=== PATIENT | female | born 1975 | race Caucasian/White ===

== ENCOUNTER → 2018-03-11 08:40 | Outpatient (CLI) | payer OTHER, SELFPAY ==
[2018-03-11 10:06] LABS: Follicle Stimulating Hormone 4.08 mIU/mL; Luteinizing Hormone 4.93 mIU/mL; Prolactin 12.5 ng/mL (3.0-18.6)
[2018-03-11 10:28] LABS: Thyroid Stimulating Hormone 0.89 uIU/mL (0.47-4.68)
[2018-03-15 21:58] LABS: Testosterone Free 3.1 pg/mL (0.1-6.4); Testosterone Total 35 ng/dL (2-45)
[2018-03-17 19:16] LABS: Estradiol 130 pg/mL
== END ==
DX: R63.5 Abnormal weight gain (principal)
CPT/HCPCS: 36415; 82672; 83001; 83002; 84146; 84402; 84403; 84443

== ENCOUNTER → 2018-12-29 16:20 | Outpatient (CLI) | payer OTHER, SELFPAY ==
--- NOTE | 2018-12-29 16:22 | DI.RAD.S_ITS ---
PROCEDURE: XR KNEE RT 3V INDICATIONS: Knee pain, injury TECHNIQUE: 3 views of the knee were acquired. COMPARISON: None. FINDINGS: Bones: No displaced fracture identified. There is mild narrowing of the medial compartment of the right knee. Soft tissues: Large right knee joint effusion. IMPRESSION: 1. Large right knee joint effusion, raising concern for potential ligamentous/soft tissue injury. No displaced right knee fracture identified. Consider followup radiographs in 7-10 days versus MRI if there is continued clinical concern. 2. Mild narrowing of the medial compartment of the right knee, which can be seen secondary to degenerative change or positioning artifact. Dictated by: Yosef Holguin M.D. on 12/29/2018 at 17:42 Approved by: Yosef Holguin M.D. on 12/29/2018 at 17:47
== END ==
PROVIDERS: PCP Student in an Organized Health Care Education/Training Program; Visit Provider Student in an Organized Health Care Education/Training Program
DX: M25.561 Pain in right knee (principal); M25.461 Effusion, right knee; S89.91XA Unspecified injury of right lower leg, initial encounter; X58.XXXA Exposure to other specified factors, initial encounter
CPT/HCPCS: 73562

== ENCOUNTER → 2020-06-21 14:47 | Outpatient (CLI) | payer OTHER, SELFPAY ==
--- NOTE | 2020-06-21 14:47 | DI.US.S_ITS ---
ULTRASOUND OF LEFT BREAST: 06/21/2020 CLINICAL: Palpable lumps left breast. Comparison is made to exam dated: 06/21/2020 [facility]. Color flow and real-time ultrasound of the left breast were performed. Olivo scale images of the real-time examination were reviewed. There is a 1.7 cm x 1.5 cm x 1.5 cm irregular mass with an indistinct and angular margin in the left breast at 12 o'clock middle depth 6 cm from the nipple. This irregular mass is hypoechoic. This correlates as palpated, with mammography findings, and area of clinical concern. There are related calcifications as noted on mammogram. Color flow imaging demonstrates that there is vascularity present. There also are two immediately adjacent irregular masses in the left breast superior medial quadrant anterior depth measuring 1.6 cm and 1.0 cm in maximum dimension, respectively. These irregular masses are hypoechoic. These correlate as palpated and with area of clinical concern. Color flow imaging demonstrates that there is vascularity present. Additionally, there is a 1 cm oval mass in the left breast at 12 o'clock in the retroareolar region. This oval mass is hypoechoic with no posterior acoustic shadowing or enhancement. Color flow imaging demonstrates that there is no vascularity present. This also correlates with palpable area of concern and is in relatively close vicinity to the two adjacent, more superficial retroareolar masses described above. In addition, there is an enlarged lymph node with eccentric cortical thickening in the left axillary tail. This enlarged lymph node displays fatty hilum. This correlates with mammography findings. IMPRESSION: HIGHLY SUGGESTIVE OF MALIGNANCY The 1.7 cm x 1.5 cm x 1.5 cm irregular mass in the left breast at 12 o'clock middle depth is highly suggestive of malignancy. An ultrasound guided biopsy is recommended. The multiple irregular masses in the left breast superior aspect, anterior depth are highly suggestive of malignancy. An ultrasound guided biopsy is recommended of one of the two immediately adjacent masses. The 1 cm oval mass in the left breast at 12 o'clock in the retroareolar region is suspicious of malignancy but biopsy will be withheld at this time given its close proximity to the two adjacent 12 o'clock retroareolar masses described above. This mass appears less suspicious relatively to the other masses described above. Consideration for biopsy may be pursued pending pathology results of other biopsy sites. The enlarged lymph node with eccentric cortical thickening in the left axillary tail is also suspicious of malignancy. An ultrasound guided biopsy is recommended. Findings and recommendations were discussed with the patient during today's examination by Dr. Gould. This exam was interpreted at Station ID: [id number]. Electronically Signed By: Tomasz Almendarez M.D. aty/:06/21/2020 16:54:27 letter sent: Biopsy Required Ultrasound BI-RADS: 5 Highly suggestive of malignancy
--- NOTE | 2020-06-21 14:47 | DI.MG.S_ITS ---
BILATERAL DIGITAL DIAGNOSTIC MAMMOGRAM 3D/2D: 06/21/2020 CLINICAL: Baseline exam. Left breast lump. No prior exams were available for comparison. The tissue of both breasts is extremely dense, which lowers the sensitivity of mammography. There are segmental heterogeneous, pleomorphic calcifications in the left breast at 12 o'clock spanning the anterior to middle depth. This correlates as palpated and with skin markers noted at the subareolar depth and middle depth near the 12 o'clock axis. No other significant masses, calcifications, or other findings are seen in either breast. There are prominent left axillary lymph nodes. IMPRESSION: INCOMPLETE: NEEDS ADDITIONAL IMAGING EVALUATION There are suspicious segmental heterogeneous, pleomorphic calcifications in the left breast spanning from the retroareolar depth to the middle depth superior region without definite associated mass or architectural distortion. These correlate with palpable areas of concern and are indeterminate. An ultrasound is recommended for further evaluation and is scheduled to immediately follow this examination. This exam was interpreted at Station ID: [id number]. NOTE: For mammograms, a report in lay terms will be sent to the patient. Approximately 15% of breast malignancies will not be visualized mammographically. In the management of a palpable breast mass, a negative mammogram must not discourage biopsy of a clinically suspicious lesion. Electronically Signed By: Tomasz Almendarez M.D. aty/:06/21/2020 16:42:26 ACR BI-RADS Category 0: Incomplete [id number]
== END ==
PROVIDERS: PCP Student in an Organized Health Care Education/Training Program; Referring Provider Student in an Organized Health Care Education/Training Program; Visit Provider Student in an Organized Health Care Education/Training Program
DX: R92.8 Other abnormal and inconclusive findings on diagnostic imaging of breast (principal); N63.25 Unspecified lump in the left breast, overlapping quadrants; R92.1 Mammographic calcification found on diagnostic imaging of breast; R59.0 Localized enlarged lymph nodes
CPT/HCPCS: 76642; 77066; G0279

== ENCOUNTER → 2020-06-28 08:45 | Outpatient (CLI) | payer OTHER, SELFPAY ==
--- NOTE | 2020-06-28 | PATH_ITS ---
[facility] Accession Number: [id number] . 01 Material submitted: . PART A: breast - LEFT BREAST 12:00 6CMFN #1 MASS PART B: breast - LEFT BREAST 12:00 RETRO MASS #2 PART C: breast - LEFT AXILLA LYMPH NODE . 02 Diagnosis: A. Left Breast 12 o'clock, 6 cm from Nipple, #1 Mass: . Invasive carcinoma of the breast with the following features: . Procedure: Needle biopsy. Laterality: Left. Tumor site: 12 o'clock, 6 cm from nipple. Tumor size: Greatest dimension of largest invasive focus: At least 5 mm. Histologic type: Invasive carcinoma of no special type (ductal). Histologic grade: Glandular differentiation: Score 3 of 3. Nuclear pleomorphism: Score 3 of 3. Mitotic rate: Score 1 of 3. Overall grade: Grade 2 (of 3). Ductal carcinoma in situ: Present. Architectural patterns: Cribriform and solid. Nuclear grade: Grade 3 (high). Necrosis: Present, central. Lymphovascular invasion: Not identified. Microcalcifications: Not identified. Ancillary studies: Biomarker studies: Please see microscopic description. . B. Left Breast 12 o'clock, Retro, mass #2: . Invasive carcinoma of the breast with the following features: . Procedure: Needle biopsy. Laterality: Left. Tumor site: 12 o'clock, retro, mass #2, not otherwise specified. Tumor size: Greatest dimension of largest invasive focus: 5 mm. Histologic type: Invasive carcinoma of no special type (ductal). Histologic grade: Glandular differentiation: Score 3 of 3. Nuclear pleomorphism: Score 3 of 3. Mitotic rate: Score 1 of 3. Overall grade: Grade 2 (of 3). Ductal carcinoma in situ: Present. Architectural patterns: Cribriform. Nuclear grade: Grade 3 (high). Necrosis: Not identified. Lymphovascular invasion: Suspicious foci present. Microcalcifications: Not identified. Ancillary studies: Biomarker studies: Please see microscopic description. . C. Left Axilla Lymph Node, Core Biopsy: Negative for metastatic carcinoma by immunohistochemistry studies. MRV 07/03/2020 1633 Local . 02 Comment: As part of routine supervisor type disk quality control, this case was also reviewed by Dr. Monreal, who agrees with the interpretation. . Results discussed with Dr. Barros's Beaming Machine Operator, Caro, on 07-03-20 at approximately 3:07 a.m. . 02 Electronically signed: . Nicol Herr MD, Pathologist NPI- [id number] . 01 Gross description: . A. The specimen is received in formalin, labeled left breast 12 o'clock 6 cm from nipple, and consists of multiple ayala cores of fibroadipose tissue and clotted blood measuring 1.5 x 1.5 x 0.3 cm in aggregate. The specimen is entirely submitted in cassette A1. B. The specimen is received in formalin, labeled left breast 12 o'clock retro, and consists of multiple ayala cores of fibroadipose tissue measuring 2.5 x 2.0 x 0.4 cm in aggregate. The specimen is entirely submitted in cassette B1. C. The specimen is received in formalin, labeled left axilla lymph node, and consists of two ayala fragments of soft tissue measuring 0.3 x 0.3 x 0.1 cm in aggregate. The specimen is entirely submitted in cassette C1. . Formalin fixation time: Approximately 60 hours. ([id number]) /ANIL 06/30/2020 1435 Local . 02 Microscopic: . Part A. Immunostain is performed on block A1. The controls show appropriate reactivity. . CAP BREAST BIOMARKER REPORTING TEMPLATE: . Estrogen Receptor (ER) Status: Positive. Average intensity of staining: Moderate intensity, approximately 70% of tumor nuclei. Primary antibody: SP1 Progesterone Receptor (PgR) Status: Positive. Average intensity of staining: Weak to moderate intensity, approximately 25% of tumor nuclei. Primary antibody: 1E2 HER2 (by immunohistochemistry): Positive at 3+. Primary antibody: 4B5 . . Cold Ischemia and Fixation Times: Meets requirements in the latest version of the ASCO/CAP guidelines. Testing performed on Block Number: A1. . . Part B. . Immunohistochemical studies were performed on block B1. The control stains showed appropriate reactivity. . RESULTS: D2-40: Rare foci suspicious for lymphovascular involvement; confirms histologic impression. . CAP BREAST BIOMARKER REPORTING TEMPLATE: . Estrogen Receptor (ER) Status: Positive. Average intensity of staining: Weak to moderate staining, approximately 80% of tumor nuclei. Primary antibody: SP1 Progesterone Receptor (PgR) Status: Positive. Average intensity of staining: Weak to moderate staining, less than 10% of tumor nuclei. Primary antibody: 1E2 HER2 (by immunohistochemistry): Positive at 3+. Primary antibody: 4B5 . . Cold Ischemia and Fixation Times: Meets requirements in the latest version of the ASCO/CAP guidelines. Testing performed on Block Number: B1. . TECHNICAL NOTE: The scoring criteria for breast biomarkers by immunohistochemistry is based on the current ASCO/CAP guidelines (Joni et al, Arch Pathol Lab Med 2010: 134(6): 907-922 / Rika Joseph al, Arch Pathol Lab Med 2014: 138(2):241-256). Deparaffinized sections of formalin fixed tissue (along with appropriate positive controls) are incubated with the above antibody(s). Using the automated [place] stainer, tissue is incubated with the designated antibody* which is then localized by a non-biotin, dual polymer detection system. The external controls are reviewed for appropriate reactivity and found to be adequate. Results on the target cell population are indicated above. These tests have not been validated on decalcified tissue. . Part C. . An immunohistochemical stain for MARIA A is performed on block C1. The control stain shows appropriate reactivity. . MARIA A: Negative for metastatic carcinoma. . . * This test was developed and its performance characteristics determined by [employer] It has not been cleared or approved by the U.S. Food and Drug Administration. The FDA has determined that such clearance or approval is not necessary. This test is used for clinical purposes. It should not be regarded as investigational or for research. . 02 Pathologist provided ICD-10: C50.912 . 02 CPT . 499228, 870662, 975153, F23532, V80049, 795145, 285090, 638696, 567816, 641032, 821500 Performed at: 01 [facility] [address] [place] [address] [address] [facility] [place] [id number] MD Brodie Gordon MD Phone: [phone] Performed at: 02 [facility] [address] [place] [id number] MD Sarah Monreal MD Phone: [phone]
--- NOTE | 2020-06-28 | DI.MG.S_ITS ---
UNILATERAL LEFT DIGITAL DIAGNOSTIC MAMMOGRAM POST-NEEDLE BIOPSY: 06/28/2020 CLINICAL: Left breast lump. Comparison is made to exam dated: 06/21/2020 [facility]. The tissue of left breast is extremely dense, which lowers the sensitivity of mammography. Biopsy clips are at the biopsy sites. IMPRESSION: Biopsy clips are at the biopsy sites. This exam was interpreted at Station ID: [id number]. NOTE: For mammograms, a report in lay terms will be sent to the patient. Approximately 15% of breast malignancies will not be visualized mammographically. In the management of a palpable breast mass, a negative mammogram must not discourage biopsy of a clinically suspicious lesion. Electronically Signed By: Xiang Lin M.D. fx/:06/28/2020 16:00:42 ACR BI-RADS Category n/a
--- NOTE | 2020-06-28 08:47 | DI.US.S_ITS ---
MULTIPLE ULTRASOUND GUIDED BIOPSIES LEFT BREAST USING VACUUM DEVICE WITH POST MAMMOGRAPHIC AND ULTRASOUND IMAGIN06/28/2020 CLINICAL: Two left breast masses and left axillary node biopsies. PATIENT CONSENT: Risks (minor bleeding, infection, vasovagal reaction and repeat procedure), benefits and alternatives were explained to the patient and written informed consent was obtained. Correlation is made to exams dated: 06/21/2020 ultrasound, 06/28/2020 mammogram, and 06/21/2020 mammogram - [facility]. An ultrasound guided biopsy using real-time ultrasound was performed for the oval mass located in the left breast central to the nipple anterior depth. This was described on the previous ultrasound report. The skin was prepped in the usual manner. Local anesthetic was administered to the access site. The abnormality was approached from the lateral aspect. A 13 gauge biopsy needle was placed adjacent to the abnormality under ultrasound guidance. Once the needle was documented to be in the correct location, 5 specimens were obtained using the Mammotome biopsy system. Post procedure mammographic and ultrasound imaging demonstrates the clip at the targeted area. The specimens were sent to the laboratory for pathological analysis. A second ultrasound guided biopsy using real-time ultrasound was performed for the irregular mass located in the left breast at 12 o'clock posterior depth. This was described on the previous ultrasound report. The skin was prepped in the usual manner. Local anesthetic was administered to the access site. The abnormality was approached from the lateral aspect. A 13 gauge biopsy needle was placed adjacent to the abnormality under ultrasound guidance. Once the needle was documented to be in the correct location, 6 specimens were obtained using the Mammotome biopsy system. Post procedure mammographic and ultrasound imaging demonstrates the clip at the targeted area. The specimens were sent to the laboratory for pathological analysis. A third ultrasound guided biopsy using real-time ultrasound was performed for a lymph node located in the left axilla. The skin was prepped in the usual manner. Local anesthetic was administered to the access site. The abnormality was approached from the lateral aspect. A 20 gauge biopsy needle was placed adjacent to the abnormality under ultrasound guidance. Once the needle was documented to be in the correct location, 3 specimens were obtained using biopsy device. Post procedure ultrasound imaging was obtained. The specimens were sent to the laboratory for pathological analysis. IMPRESSION: ULTRASOUND GUIDED BIOPSY MALIGNANT 1) Ultrasound guided biopsy of the mass in the left breast central to the nipple anterior depth was successful. Pathology demonstrate invasive carcinoma. Pathology results are concordant with imaging findings. 2) Ultrasound guided biopsy of the mass in the left breast at 12 o'clock posterior depth was successful. Pathology demonstrate invasive carcinoma. Pathology results are concordant with imaging findings. 3) Ultrasound guided biopsy of the lymph node in the left axilla was successful. Pathology is negative for carcinoma. Pathology results are discordant with imaging findings. The cortex of the lymph node is thickened on ultrasound and there is concern for under sampling. A surgical/oncologic consultation is recommended. This exam was interpreted at Station ID: [id number]. Xiang Lee M.D. fx,slc/:07/04/2020 13:56:53
== END ==
PROVIDERS: PCP Student in an Organized Health Care Education/Training Program; Referring Provider Student in an Organized Health Care Education/Training Program; Visit Provider Student in an Organized Health Care Education/Training Program
DX: N63.20 Unspecified lump in the left breast, unspecified quadrant (principal)
CPT/HCPCS: 19083; 77065